=== PATIENT | male | born 1990 | race Two or more races ===

== ENCOUNTER 2022-03-31 19:04 | Emergency (ER) | payer OTHER ==
[~2022-03-31] VITALS: Ht 175.3 cm; Wt 75.0 kg
[2022-03-31] MEDS ORDERED: ACETAMINOPHEN 325 MG TAB PO ONE (19:15)
[2022-03-31 20:08] LABS: Basophils # (auto) 0.1 10 ^3/uL (0-0.2); Basophils % (auto) 0.4 % (0.0-2.0); Eosinophils # (auto) 0 10 ^3/uL (0-0.8); Eosinophils % (auto) 0.1 % (0.0-7.0); Hematocrit 46.2 % (41.0-53.0); Hemoglobin 16.3 g/dL (13.5-17.5); Lymphocytes # (auto) 1.6 10 ^3/uL (0.4-5.4); Lymphocytes % (auto) 7.9 % (10.0-50.0); Mean Corpuscular Hemoglobin 30.8 pg (28.0-32.0); Mean Corpuscular Hgb Conc. 35.2 g/dL (32.0-36.0); Mean Corpuscular Volume 87.4 fL (80.0-100.0); Monocytes # (auto) 1.3 10 ^3/uL (0-1.3); Monocytes % (auto) 6.5 % (0.0-12.0); Neutrophils # (auto) 17.2 10 ^3/uL (1.6-8.6); Neutrophils % (auto) 85.1 % (37.0-80.0); Red Blood Cells 5.29 10^6/uL (4.5-5.90); Red Cell Distribution Width 13.2 % (11.8-14.3); White Blood Cell 20.2 10^3/uL (4.4-10.8)
[2022-03-31 20:14] LABS: Albumin 4.5 g/dL (3.4-5.0); Calcium 9.8 mg/dL (8.5-10.1); Potassium 3.4 mmol/L (3.5-5.1)
[2022-03-31 20:18] LABS: Bilirubin, Total 1.5 mg/dL (0.2-1.0); Total Protein 7.9 g/dL (6.4-8.2)
[2022-03-31 21:51] LABS: Urine Bacteria NONE SEEN /hpf (None Seen); Urine Blood Negative /uL (Negative); Urine Specific Gravity 1.022 (1.001-1.035); Urine WBC 6 /hpf (0 - 3)
[2022-03-31] MEDS ORDERED: cefTRIAXone 1GM/50ML D5W 50 ML IV ONE (23:30)
[2022-03-31] MEDS ORDERED: SODIUM CHLORIDE 0.9% 1,000 ML IV ONE (23:30)
[2022-04-01] MEDS ORDERED: metroNIDAZOLE 500MG/100ML 100 ML IV ONE (04:45)
[2022-04-01] MEDS ORDERED: CIPROFLOXACIN 400MG/200ML 200 ML IV ONE (04:45)
[2022-04-01 11:00] VITALS: BP 125/72
[2022-04-01] MEDS ORDERED: METR500T PO (11:55)
[2022-04-01] MEDS ORDERED: LEVO500T31 PO (11:55)
== END 2022-04-01 12:52 | disposition admitted as inpatient to this hospital (09) ==
LOC: ER 19:04
DX: A41.9 Sepsis, unspecified organism (principal); N39.0 Urinary tract infection, site not specified; R50.9 Fever, unspecified; D72.829 Elevated white blood cell count, unspecified; Z88.0 Allergy status to penicillin; Z20.822 Contact with and (suspected) exposure to COVID-19
CPT/HCPCS: 36415; 71046; 74176; 80053; 81001; 83605; 84484; 85025; 87426; 93005; 96365; 99285; J0744; J3490; J7030